=== PATIENT | male | born 1955 | race Caucasian/White ===

== ENCOUNTER 2021-08-07 21:15 | Emergency (ER) | payer MEDICARE ==
[~2021-08-07] VITALS: Ht 180.3 cm; Wt 87.6 kg
--- NOTE | 2021-08-07 21:25 | NUR ---
EKG DONE IN TRIAGE.
--- NOTE | 2021-08-07 21:54 | NUR ---
international account representative: patient to room from lobby.
--- NOTE | 2021-08-07 22:04 | NUR ---
PT CAME IN CO CP THAT STARTED YESTERDAY - LEFT SIDED, POSTIONAL. SOB ON EXCERTION. PT WAS COVID POSITIVE A COUPLE WEEKS AGO AND TOOK A COURSE OF ABX. TOOK A HOME COVID TEST TODAY THAT WAS NEGATIVE. EKG COMPLETE. CONNECTED TO MONITORING EQUIPMENT. BEDSIDE
[2021-08-07 22:42] VITALS: BP 105/51
--- NOTE | 2021-08-07 22:42 | NUR ---
PT AMBULATED TO BATHROOM WITH STEADY GATE
[2021-08-07 23:09] LABS: BASOPHILS % (AUTO) 0 % (0-1); EOSINOPHILS % (AUTO) 1 % (1-7); LYMPHOCYTES % (AUTO) 8 % (22-44); MEAN CORPUSCULAR HEMOGLOBIN 29.3 pg (27.5-34.5); MEAN CORPUSCULAR HGB CONC 33.5 g/dL (33.2-36.2); MEAN PLATELET VOLUME 7.8 fL (7.4-10.4); MONOCYTES % (AUTO) 7 % (2-9); NEUTROPHILS % (AUTO) 84 % (42-75); PLATELET COUNT 245 x10^3/uL (130-400); RED BLOOD COUNT 5.13 x10^6/uL (4.38-5.82)
[2021-08-07 23:10] LABS: ALBUMIN 3.3 g/dL (3.4-5.0); ANION GAP 9 mmol/L (5-15); CALCIUM 8.8 mg/dL (8.5-10.1); CHLORIDE 108 mmol/L (98-107); CREATININE 0.84 mg/dL (0.7-1.3)
[2021-08-07 23:39] LABS: ALANINE AMINOTRANSFERASE 26 U/L (12-78); ALKALINE PHOSPHATASE 79 U/L (45-117); TOTAL PROTEIN 7.1 g/dL (6.4-8.2); TROPONIN I < 0.015 ng/mL (0.000-0.045)
== END 2021-08-08 00:45 | disposition home or self-care (01) ==
LOC: ED 22:07
DX: B34.9 Viral infection, unspecified (principal); R94.31 Abnormal electrocardiogram [ECG] [EKG]
CPT/HCPCS: 36415; 71045; 80053; 84484; 85025; 93005; 99285